=== PATIENT | male | born 1990 | race Caucasian/White ===

== ENCOUNTER 2016-06-01 12:25 | Emergency (ER) | payer OTHER ==
[2016-06-01] MEDS ORDERED: PREDNISONE 20 MG TABLET PO ONE (13:51)
[2016-06-01] MEDS ORDERED: IPRATROPIUM/ALBUTEROL 0.5-2.5 MG/3 ML AMPUL NEB ONE (13:51)
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
[2016-06-01 14:50] LABS: ABSOLUTE EOSINOPHILS # (AUTO) 0.2 10^3/uL (0.0-0.6); ABSOLUTE LYMPHOCYTES (AUTO) 2.5 10^3/uL (0.5-4.7); ABSOLUTE NEUT (AUTO) 8.8 10^3/uL (1.7-8.2); BASOPHILS % (AUTO) 0.3 % (0-2); EOSINOPHILS % (AUTO) 1.4 % (0-6); HEMOGLOBIN 15.4 g/dL (13.5-17.0); HGB HCT DIFFERENCE 1.2; LYMPHOCYTES % (AUTO) 19.9 % (13-45); MEAN CORPUSCULAR HEMOGLOBIN 29.8 pg (27.0-33.4); MEAN CORPUSCULAR HGB CONC 34.3 g/dL (32.0-36.0); MEAN CORPUSCULAR VOLUME 87 fl (80-97); MONOCYTES % (AUTO) 7.9 % (3-13); RED BLOOD COUNT 5.18 10^6/uL (4.35-5.55); RED CELL DISTRIBUTION WIDTH 12.8 % (11.5-14.0); SEGMENTED NEUTROPHILS % (AUTO) 70.5 % (42-78); WHITE BLOOD COUNT 12.5 10^3/uL (4.0-10.5)
[2016-06-01 16:36] LABS: ALANINE AMINOTRANSFERASE 76 U/L (21-72); ALBUMIN 4.1 g/dL (3.5-5.0); ALKALINE PHOSPHATASE 95 U/L (38-126); ANION GAP 13 (5-19); ASPARTATE AMINO TRANSFERASE 30 U/L (17-59); BILIRUBIN,TOTAL 0.9 mg/dL (0.2-1.3); BLOOD UREA NITROGEN 11 mg/dL (7-20); CALCIUM 9.5 mg/dL (8.4-10.2); CARBON DIOXIDE 25 mmol/L (22-30); CHLORIDE 105 mmol/L (98-107); CREATININE RESULT 0.82 mg/dL (0.52-1.25); GLUCOSE 88 mg/dL (75-110); SODIUM 142.8 mmol/L (137-145)
[2016-06-01 16:37] LABS: ALCOHOL < 10 mg/dL (NONE DETECTED)
[2016-06-01] MEDS ORDERED: NICOTINE 21 MG/24 HR PATCH.TD24 TD PRN (17:29)
[2016-06-01 17:35] LABS: APPEARANCE,URINE CLEAR; BILIRUBIN,URINE NEGATIVE (NEGATIVE); GLUCOSE, URINE NEGATIVE (NEGATIVE); KETONES,URINE NEGATIVE (NEGATIVE); LEUKOCYTE ESTERASE,URINE NEGATIVE (NEGATIVE); NITRITE,URINE NEGATIVE (NEGATIVE); PROTEIN,URINE NEGATIVE (NEGATIVE); URINE SPECIFIC GRAVITY 1.004
--- NOTE | 2016-06-01 17:50 | PSYCHOLOGICAL NOTE ---
Psych Note - Psych Note Psych Note: Patient is a 26 year old male who initially presented to [facility] ED with c/o sob, coughing, etc. During medical workup, patient's brother reportedly informed medical staff that the patient has been suicidal, and in fact left the family home with a gun (note specific timing of this is unclear). Patient left AMA from the ED after learning his brother disclosed this information, and due to concerns for his safety, [facility] IVC the patient and he was escorted back to the Department via [facility] at 1545. RN also noted, patient's family called to report the patient has text did baltazar. In the text to his mother he reportedly instructed her to kiss his daughter baltazar. Family also disclosed the patient had reported visual and auditory hallucinations with no known history of these complaints. Patient now states that all of this is a big mistake. He states his family did not communicate with him directly, and instead misunderstood text messages and conversations. Patient states he has no prior psychiatric history nor does he have one now. Patient acknowledges that he has a history of "an anger problem," and that his ex 's prompting attempted to get outpatient treatment via [facility] last year. He states they prescribed medications that made him drool on himself and he couldn't ambulate out of the chair, so he discontinued them without follow-up after 2 days. Patient states he always carries a gun and the fact that he left the house with a gun is not abnormal. Patient denies hallucinations. Patient denies suicidal ideations. Patient states he loves himself does not want to harm himself or harm anyone else. Patient states he did text his mother to kiss his daughter, but reports that is because she sees him more frequently than he does. Patient states he is going through a difficult divorce and custody disagreement, but states his main goal is to see his daughter as much as possible. Patient states he ended up in the emergency room today because of his brother. He states his brother was driving him to the doctor for his cough and cold symptoms, and noticed that his arms were sort of "locking up," he states possibly due to dehydration. Patient reports his brother called EMS, and he was transported here via ambulance. Patient denies suicidal/homicidal ideations, intent, plan, means. Patient is alert and oriented 4. Mood is euthymic with normal affect. Patient denies suicidal/homicidal ideations, intent, plan, means. Patient denies A/VH; delusions not noted. Thought processes were guarded and goal oriented towards discharge. Conversational speech was WNL for rate, tone, and prosody. Intellectual abilities were estimated within average range. Insight, judgment, impulse control were poor. Diagnosis: Deferred At this time for evaluation cannot be completed as critical medical information is missing, to include all lab work to determine toxicology and possible etiology of current episode. Patient will be reevaluated at a later time, likely tomorrow for further disposition and recommendations. At this time due to noted concerns patient is recommended to continue under involuntary commitment for further evaluation.
[2016-06-01 17:51] LABS: URINE BARBITURATES SCREEN NEGATIVE; URINE METHADONE SCREEN NEGATIVE; URINE OPIATES LOW NEGATIVE; URINE PHENCYCLIDINE SCREEN NEGATIVE
--- NOTE | 2016-06-01 20:02 | EKG REPORT ---
SEVERITY:- NORMAL ECG - SINUS RHYTHM : Confirmed by: Nolan Beckwith 01-Jun-2016 20:01:36
--- NOTE | 2016-06-02 09:09 | ER Document Report ---
Doctor's Note Notes: 06/02/16 12:19 As the rounding physician for our psychiatric patients, I have reviewed the chart, vitals, lab work. Patient has been examined and noted to be stable at this time. Will start medications per mental health input
[2016-06-02 09:42] VITALS: BP 122/66
[2016-06-02] MEDS ORDERED: OLANZAPINE INJ/PF 10 MG SDV IM ONE (12:17)
[2016-06-02] MEDS ORDERED: BENZTROPINE MESYLATE INJ 2 MG/2 ML AMPULE IM SCH (12:30)
[2016-06-02] MEDS ORDERED: OLANZAPINE 5 MG TABLET PO ONE (12:53)
[2016-06-02] MEDS ORDERED: BENZTROPINE MESYLATE 1 MG TABLET PO ONE (12:53)
[2016-06-02] MEDS ORDERED: DIVALPROEX SODIUM 500 MG TAB.SR.24H PO SCH (13:00)
--- NOTE | 2016-06-02 14:30 | PSYCHOLOGICAL NOTE ---
Psych Note - Psych Note Psych Note: Conducted check in with patient who is a 26 year old male under IVC at [facility] ED. Patient this morning states he is ready to go home, and continues to deny all reports by his family members. Patient's mother presented bedside to report concerns over patient's behaviors. Mother showed phone with text messages to include her begging him no to hurt himself, and him saying goodbye and kiss his daughter. Mother reports after he sent the text message, her other son, patient's brother drove around looking for him. Mother reports patient was found, alone at one of his job sites in the [employer] with a gun. Mother reports the patient was initially angry and upset; but eventually was sad and tearful. Mother reports she has known since he was a teenager that he smokes marijuana, but is unsure about any other drugs. Mother states the patient was also talking about seeing demons, etc. She reports the patient has never expressed this in the past, but states last year he went to [facility] for help and was diagnosed with Bipolar and Schizophrenia, but was given medications that he took for 2 days and could not remember anything so he stopped. Mother reports she is concerned for his safety and states he will "sweet talk" and be polite to get himself out. Mother states he has a long history of anger problems, dating back to high school, but he has worsened since the of his father 3 years ago. Patient is A&O. Mood is irritably, but cooperative. Affect was normal. Patient denies suicidal/homicidal ideations, intent, plan, or means. Patient is considered to be suicidal given the multiple reports by family members. Patient denies homicidal ideations. Patient denies A/V H; delusions not noted. Thought processes were organized, but guarded and goal oriented towards discharge. Conversational speech was WNL for rate, tone, and prosody. Intellectual abilities were estimated within average range. Attention and focus were fair. Insight, judgment, and impulse control were poor Unspecified Depressive and Related Disorder Unspecified Cannabis Use Disorder Patient is recommended to continue under IVC and seek 24 hour inpatient hospitalizations. Patient has been referred for psychiatric placement and accepted to [facility] for treatment. Patient's mother notified. I consulted with Dr. Nicole in regards to the care and management of this patient. ED MD is in agreement with disposition and recommendations.
[2016-06-02] MEDS ORDERED: OLANZAPINE 5 MG TAB.RAPDIS PO SCH (18:00)
== END 2016-06-02 13:55 ==
LOC: ER 12:25
DX: R05 Cough (principal); F32.9 Major depressive disorder, single episode, unspecified; R45.851 Suicidal ideations; R06.02 Shortness of breath; R09.81 Nasal congestion; R09.89 Other specified symptoms and signs involving the circulatory and respiratory systems; J02.9 Acute pharyngitis, unspecified; F17.210 Nicotine dependence, cigarettes, uncomplicated
CPT/HCPCS: 93005; 94640; 99285; 36415; 80307 ×4; 85025; 80053; 81001; 87804; 71020; 93010; J7512; J7620

== ENCOUNTER 2017-10-31 10:56 | Emergency (ER) | payer BC, OTHER ==
--- NOTE | 2017-10-31 12:41 | ER Document Report ---
ED Oral Problem - General Chief Complaint: Toothache Stated Complaint: TOOTH PAIN Time Seen by Provider: 10/31/17 11:50 Mode of Arrival: Ambulatory Information source: Patient Notes: Patient is a 19-year-old male with complaints of left upper jaw and tooth pain. Patient reports this is been going on for approximately 1 day. Patient reports history of multiple dental infections. Patient denies any fever, nausea or vomiting. TRAVEL OUTSIDE OF THE [place] IN LAST 30 DAYS: No - Related Data Allergies/Adverse Reactions: shrimp Allergy (Verified 10/31/17 10:57) Past Medical History - General Information source: Patient - Social History Smoking Status: Current Every Day Smoker Chew tobacco use (# tins/day): No Frequency of alcohol use: Occasional Drug Abuse: Marijuana Family History: Reviewed & Not Pertinent Patient has suicidal ideation: No Patient has homicidal ideation: No - Medical History Medical History: Negative Renal/ Medical History: Denies: Hx Peritoneal Dialysis Surgical Hx: Negative - Immunizations Immunizations up to date: Yes Review of Systems - Review of Systems Constitutional: No symptoms reported EENT: See HPI Cardiovascular: No symptoms reported Respiratory: No symptoms reported Gastrointestinal: No symptoms reported Genitourinary: No symptoms reported Male Genitourinary: No symptoms reported Musculoskeletal: No symptoms reported Skin: No symptoms reported Hematologic/Lymphatic: No symptoms reported Neurological/Psychological: No symptoms reported Physical Exam - Vital signs Vitals: Temp Pulse Resp BP Pulse Ox 97.5 F 47 L 16 142/90 H 100 10/31/17 11:05 10/31/17 11:05 10/31/17 11:05 10/31/17 11:05 10/31/17 11:05 - Notes Notes: PHYSICAL EXAMINATION: GENERAL: Well-appearing, well-nourished and in no acute distress. HEAD: Atraumatic, normocephalic. EYES: Pupils equal round and reactive to light, extraocular movements intact, sclera anicteric, conjunctiva are normal. ENT: Nares patent, oropharynx clear without exudates. Moist mucous membranes. Erythema noted to left upper jawline, no drainable abscess noted. NECK: Normal range of motion, supple without lymphadenopathy LUNGS: Breath sounds clear to auscultation bilaterally and equal. No wheezes rales or rhonchi. HEART: Regular rate and rhythm without murmurs SKIN: Warm, Dry, normal turgor, no rashes or lesions noted. Course - Re-evaluation Re-evalutation: She was likely dental infection, will place patient on Penicillin VK and provide small amount of analgesics. Patient instructed to follow-up with his dentist. - Vital Signs Vital signs: Temp Pulse Resp BP Pulse Ox 98 F 58 L 16 138/88 H 99 10/31/17 12:45 10/31/17 12:45 10/31/17 12:45 10/31/17 12:45 10/31/17 12:45 Discharge - Discharge Clinical Impression: Dental infection Condition: Stable Disposition: HOME, SELF-CARE Instructions: Dentist Additional Instructions: TOOTHACHE: Your pain is due to dental decay. The tooth must be repaired in order for you to feel better. You will, therefore, be referred to a dentist. We do not have dentists on the staff at [facility]. Severe swelling or drainage around a tooth usually means a dental abscess. This also requires evaluation and treatment by the dentist, but antibiotics may be prescribed while awaiting dental treatment. You should be rechecked immediately if you develop major swelling of the face, increasing pain, a lump in the jaw or gums, headache, difficulty swallowing, or fever. ORAL NARCOTIC MEDICATION: You have been given a prescription for pain control. This medication is a narcotic. It's best taken with food, as nausea can result if taken on an empty stomach. Don't operate machinery or drive within six hours of taking this medication. Do not combine this medicine with alcohol, or with any medication which can cause sedation (such as cold tablets or sleeping pills) unless you get permission from the physician. Narcotics tend to cause constipation. If possible, drink plenty of fluids and eat a diet high in fiber and fruits. Please be aware that prescription narcotics also have the potential for abuse. People become addicted to these medications because of the general sense of wellbeing that they induce. This feeling along with a significant reduction in tension, anxiety, and aggression provides a stimulating seductive quality to these drugs. Once your pain is under control, we encourage you to discard your unused narcotics. PENICILLIN V K: You have been given a prescription for Penicillin VK. Your physician has determined that this is the best antibiotic for your condition. Pen VK can be taken with meals, however more of the antibiotic gets into the bloodstream if it's taken on an empty stomach. Penicillin usually has no side effects. However, allergy to penicillins is common. If you have had an allergic reaction to any drug of the penicillin family, you should never take any other penicillin. Notify your doctor at once if you develop hives, itching, swelling, faintness, or shortness of breath. FOLLOW-UP CARE: You have been referred for follow-up care to the dentists listed below. Call the dentists office for an appointment as you were instructed or within the next two days. If you experience worsening or a significant change in your symptoms, notify the physician immediately or return to the Emergency Department at any time for re-evaluation. Prescriptions: Hydrocodone/Acetaminophen [Hydrocodon-Acetaminophen 5-325] 1 each PO Q4H PRN # 10 tablet PRN Reason: For Pain Penicillin V Potassium [Penicillin Vk 500 mg Tablet] 500 mg PO BID #20 tablet
[2017-10-31 12:50] VITALS: BP 138/88
== END 2017-10-31 12:45 | disposition home or self-care (01) ==
LOC: ER 10:56
DX: K04.7 Periapical abscess without sinus (principal); K08.89 Other specified disorders of teeth and supporting structures; F17.200 Nicotine dependence, unspecified, uncomplicated; Z91.013 Allergy to seafood
CPT/HCPCS: 99282